=== PATIENT | female | born 1965 | race African-American/Black ===

== ENCOUNTER 2022-04-30 11:39 | Outpatient (REF) | payer MEDICARE, MEDICAID, SELFPAY ==
--- NOTE | ~2022-04-30 | XR_ITS ---
EXAMINATION: XR AP BILATERAL KNEE STANDING XR LEFT KNEE CLINICAL INFORMATION: Pain. COMPARISON: None. TECHNIQUE: AP bilateral knee standing. Left knee 2 views. FINDINGS: AP Bilateral Knee Standing: There is significant loss of medial compartment joint space left knee and mild loss of joint space medial and lateral compartment right knee and lateral compartment left knee. No loose body seen. No bony erosive changes. Left Knee: There is severe loss of patellofemoral compartment joint space with moderate periarticular spurring. There is mild suprapatellar joint effusion. No acute fracture or loose body seen. XR/XR knee standing BI IMPRESSION: Severe degenerative changes medial and patellofemoral compartment joint space left knee. Mild degenerative changes medial and lateral compartment right knee and lateral compartment left knee. There is no visible acute fracture or dislocation seen.
--- NOTE | ~2022-04-30 | XR_ITS ---
EXAMINATION: XR AP BILATERAL KNEE STANDING XR LEFT KNEE CLINICAL INFORMATION: Pain. COMPARISON: None. TECHNIQUE: AP bilateral knee standing. Left knee 2 views. FINDINGS: AP Bilateral Knee Standing: There is significant loss of medial compartment joint space left knee and mild loss of joint space medial and lateral compartment right knee and lateral compartment left knee. No loose body seen. No bony erosive changes. Left Knee: There is severe loss of patellofemoral compartment joint space with moderate periarticular spurring. There is mild suprapatellar joint effusion. No acute fracture or loose body seen. XR/XR knee LT 2V IMPRESSION: Severe degenerative changes medial and patellofemoral compartment joint space left knee. Mild degenerative changes medial and lateral compartment right knee and lateral compartment left knee. There is no visible acute fracture or dislocation seen.
== END 2022-04-30 11:40 | disposition home or self-care (01) ==
LOC: HO.HOSX 11:39
PROVIDERS: Visit Provider Orthopaedic Surgery
DX: M17.12 Unilateral primary osteoarthritis, left knee (principal)
CPT/HCPCS: 73560; 73565; 99202